=== PATIENT | male | born 1955 | race Caucasian/White ===

== ENCOUNTER 2021-08-28 20:21 | Observation (INO) | payer MEDICARE, SELFPAY ==
[2021-08-28 20:23] VITALS: BP 140/102; PULSE 114; RESP 16; TEMP 36.5; O2SAT 98
[2021-08-28 21:30] LABS: Bacteria 0 SEEN /hpf (None Seen); Mucous, Urine 0 SEEN /hpf (<or=2+); Red Blood Cells-Urine 0 SEEN /hpf (0-5)
[2021-08-28 21:42] LABS: Absolute Lymphocyte Count 0.63 X10^3/uL (0.83-4.51); Absolute Neutrophil Count 10.9 X10^3/uL (2.0-7.7); Basophil# 0.04 X10^3/uL; Basophil% 0.3 % (0-1); Eosinophil# 0.02 X10^3/uL; Eosinophils% 0.2 % (0-5); Hematocrit 51.4 % (40-54); Hemoglobin 16.8 g/dL (13.0-16.5); Lymphocyte # 0.63 X10^3/ul (0.83-4.51); Mean Corp Hgb Conc 32.7 g/dL (32-36); Mean Corpuscular Hgb 29.3 pg (27.0-32.0); Mean Corpuscular Volume 89.7 fL (80-94); Mean Platelet Vol. 9.8 fl (6.2-12.0); Monocyte# 0.92 X10^3/uL; Monocyte% 7.4 % (0-10); NRBC Flagged by Analyzer 0 % (0-5); Neutrophil # 10.85 X10^3/uL (2.7-7.7); Neutrophil % 86.8 % (47-70); Platelet Count 296 K/mm3 (150-450); RBC Distribution Width CV 13.2 % (11.6-14.6); RBC Distribution Width SD 43.2 fl (35.1-43.9); Red Blood Count 5.73 M/mm3 (4.6-6.2); White Blood Count 12.5 K/mm3 (4.4-11.0)
[2021-08-28 21:52] LABS: Color, Urine Yellow (Yellow); Glucose, Dipstick Normal (Normal); Ketone-Dipstick 5 mg/dl (Negative); Leukocyte Esterase-Dipstick 25 /ul (Negative); Nitrite-Dipstick Negative (Negative); Occult Blood-Urine Negative /ul (Negative); Protein-Dipstick 30 mg/dl (Negative); Urine Bilirubin Dipstick Negative (Negative); Urine Clarity Sl. Cloudy (Clear); Urine Urobilinogen 1 mg/dl (Normal)
[2021-08-28 21:57] LABS: Anion Gap 7 (5-15); BUN 15 mg/dL (7-18); BUN/Creat Ratio 11.2 RATIO (10-20); Calcium,Total 9.2 mg/dL (8.5-10.1); Chloride 106 mmol/L (98-107); Creatinine, Serum 1.34 mg/dL (0.70-1.30); EST Glomerular Filtration Rate 56 mL/min (>60); Est Glom Filt Rate - Afr Amer 68 mL/min (>60); Estimated Creatinine Clearance 44.18 ml/min; Glucose 140 mg/dL (74-106); Potassium 3.9 mmol/L (3.5-5.1); Sodium Level 141 mmol/L (136-145)
[2021-08-28 22:04] LABS: Squamous Epithelial Cells - UA 0-5 SEEN /hpf (0-5); White Blood Cells 0-5 SEEN /hpf (0-5)
[2021-08-28 22:23] VITALS: BP 127/90; PULSE 105; RESP 20; O2SAT 95
--- NOTE | 2021-08-28 22:25 | CT_ITS ---
EXAM: CT ABDOMEN AND PELVIS WITH INTRAVENOUS CONTRAST CLINICAL INDICATION: ? SBO TECHNIQUE: Helically acquired images were obtained of the abdomen and pelvis with intravenous contrast. CTDIvol = ( 14.22 ) mGy, DLP = ( 1126.61 ) mGycm This CT exam was performed using one or more of the following dose reduction techniques: automated exposure control, adjustment of the mA and/or kV according to patient size, and/or use of iterative reconstruction technique. This report was created using [employer] report generation technology. CONTRAST: IV 100mL Isovue-370 COMPARISON: None. FINDINGS: LOWER THORAX: Moderate size hiatal hernia. Lung bases are clear. No cardiomegaly. No significant pericardial effusion. ABDOMEN: LIVER: Unremarkable. Homogeneous. No focal mass. GALLBLADDER AND BILE DUCTS: Cholelithiasis without acute cholecystitis. Gallbladder is contracted. No intra- or extrahepatic biliary ductal dilation. PANCREAS: Unremarkable. No focal cystic or solid mass. SPLEEN: Unremarkable. Normal size without focal cystic or solid mass. ADRENALS: Unremarkable. No nodules. KIDNEYS AND URETERS: Few small renal cysts involving the kidneys. No additional workup needed. No other renal abnormalities. Normal renal size and position. No hydronephrosis. STOMACH AND BOWEL: Small bowel obstruction at the mid level with a transition point at the left abdomen on image 60 series 2. No pneumatosis or portal venous gas. No colitis or diverticulitis or bowel obstruction. PELVIS: APPENDIX: No evidence of acute appendicitis. BLADDER: Unremarkable. REPRODUCTIVE: Unremarkable as visualized. No mass. ABDOMEN and PELVIS: INTRAPERITONEAL SPACE: Unremarkable. No ascites or other fluid collection. No free air. BONES/JOINTS: No suspicious lytic or sclerotic lesions of bone. SOFT TISSUES: Unremarkable. No discrete abdominal or pelvic wall hernia. VASCULATURE: Unremarkable. Abdominal aorta is non-dilated. LYMPH NODES: Unremarkable. No enlarged lymph nodes. CT/Abdomen/Pelvis W IV Cont ONLY IMPRESSION: Moderate to high-grade small bowel obstruction at the mid small bowel level with transition point in the left abdomen. Electronically Signed: Sebas Welch MD at 22:55 EDT ,
[2021-08-28 22:42] LABS: AST(SGOT) 15 U/L (15-37); Alanine Aminotransfer ALT/SGPT 16 U/L (16-61); Albumin, Serum 3.7 g/dL (3.2-5.0); Alkaline Phosphatase 139 U/L (45-117); Bilirubin, Direct 0.18 mg/dL (0.00-0.30); Globulin 3.8 g/dL (2.2-4.2); Lipase 78 U/L (73-393); Protein, Total 7.5 g/dL (6.4-8.2)
[2021-08-28 23:00] VITALS: BP 127/90; PULSE 105; RESP 20; TEMP 36.7; O2SAT 95
[2021-08-28] MEDS: 0.9% Normal Saline 1,000 ML 999 ML IV (23:01)
[2021-08-28] MEDS: Morphine 4 MG/ML Syringe IV (23:02)
[2021-08-28] MEDS: Ondansetron 4 MG/2 ML Vial IV (23:02)
[2021-08-28 23:36] VITALS: BP 124/86; PULSE 97; RESP 20; TEMP 36.6; O2SAT 95
--- NOTE | 2021-08-28 23:37 | EDS_ITS ---
HPI History of Present Illness Chief Complaint: Abd Pain Narrative Narrative: Patient is a 66-year-old male with past medical history of intestinal cancer requiring surgical removal. He states that this was 3 years ago and has been doing well and has not had any type of chemo or radiation. He states that starting yesterday evening he felt some generalized abdominal discomfort that progressed throughout the day. He states he has been nauseated without vomiting and been able to pass gas but has not had a bowel movement. He reports because of his worsening symptoms he was concerned for possible infection and therefore comes in for evaluation. PFSH PFSH Medical History Hx of fracture of leg Medical History no medical history Home Medications vitamins A,C,Z-tfqy-kmzkwu 14,320 unit-226 mg-200 unit capsule (PreserVision AREDS) 1 cap PO DAILY eye health 08/28/21 [History Last Taken 08/28/21] Allergy/AdvReac Type Severity Reaction Status Date / Time No Known Allergies Allergy Verified 08/28/21 20:25 Family History (Updated 08/29/21 @ 00:[address] Jovon Simpson MD) Other Alzheimer disease Heart disease Family History no significant family his Surgical History H/O resection of small bowel Surgical History no surgical history Social History Smoking Status: Never smoker ROS ROS ED Constitutional Constitutional ED: Denies chills or fever(s) ENT ENT ED: Denies sore throat Cardiovascular Cardiovascular: Denies chest pain Respiratory/Chest Respiratory/Chest: Denies cough or dyspnea Gastrointestinal Gastrointestinal: Reports abdominal pain, constipation and nausea; Denies diarrhea or vomiting Genitourinary Genitourinary ED: Denies dysuria Musculoskeletal Musculoskeletal: Denies myalgias Integumentary Denies rash Neurologic Neurologic: Denies headache(s) Hematologic/Lymphatic Hematologic/Lymphatic: Denies easy bleeding or easy bruising EXAM Physical Exam Const Vital Signs: 08/28/21 20:23 08/28/21 23:00 08/28/21 22:23 Temperature 97.7 F L 98.1 F Temperature Source Temporal Temporal Pulse Rate 114 H 105 H 105 H Respiratory Rate 16 20 H 20 H Blood Pressure 140/102 H 127/90 H 127/90 H Blood Pressure Mean 114 102 102 Pulse Ox 98 95 95 Oxygen Delivery Method Room Air Room Air Room Air 08/28/21 23:36 08/29/21 00:00 Temperature 97.9 F 97.9 F Temperature Source Temporal Temporal Pulse Rate 97 93 Respiratory Rate 20 H 20 H Blood Pressure 124/86 H 124/86 H Blood Pressure Mean 98 98 Pulse Ox 95 96 Oxygen Delivery Method Room Air Room Air Positive well nourished and well developed General Appearance ED: well developed HEENT Reports dry mucous membranes Mouth ED: Yes dry mucous membranes Mouth: dry mucous membranes Eyes PERRL and EOMs intact bilaterally Neck supple Resp normal respiratory effort and clear to auscultation bilaterally Cardio regular rate and regular rhythm Rate: other Other Details: Radial pulses are +2-4 bilaterally are equal and symmetric GI GI Narrative: Abdomen is soft but slightly distended. Bowel sounds are normal. There is in creased tympany in the left upper quadrant. There is diffuse pain with palpation without voluntary guarding or rigidity. No pulsatile mass or fluid wave Extremity normal to inspection Neuro oriented x3 and CN's II-XII intact bilaterally Sensorium / Orientation: alert Psych mental status grossly normal Skin no rashes or lesions noted MDM MDM MDM Narrative Medical decision making narrative: Patient presented to the ER hypertensive and mildly tachycardic. His exam is concerning for obstruction based on his distention and previous history. Basic blood work was obtained which revealed mild leukocytosis but otherwise no left shift or lactic acidosis. The CT scan did reveal changes consistent with a small bowel obstruction. General surgery was contacted and did evaluate the patient in the ER. They agree that he does not have a surgical abdomen and at this time does not need placed on their service as there is no surgical process necessary. However as he will need bowel rest and hydration and pain control he will be admitted to medicine service for further care. Lab Data Attestation: I reviewed the patient's lab results. Labs: Laboratory Results - last 24 hr 08/28/21 08/28/21 08/28/21 21:20 21:30 21:30 WBC 12.5 H RBC 5.73 Hgb 16.8 H Hct 51.4 MCV 89.7 MCH 29.3 MCHC 32.7 RDW Std Deviation 43.2 RDW Coeff of Bridgette 13.2 Plt Count 296 MPV 9.8 Immature Gran % (Auto) 0.300 Neut % (Auto) 86.8 H Lymph % (Auto) 5.0 L Sebastian % (Auto) 7.4 Eos % (Auto) 0.2 Baso % (Auto) 0.3 Absolute Neuts (auto) 10.9 H Absolute Lymphs (auto) 0.63 L Nucleated RBC % 0 Sodium 141 Potassium 3.9 Chloride 106 Carbon Dioxide 28.0 Anion Gap 7 BUN 15 Creatinine 1.34 H Estim Creat Clear Calc 44.18 Est GFR (MDRD) Af Amer 68 Est GFR (MDRD) Non-Af 56 L BUN/Creatinine Ratio 11.2 Glucose 140 H Lactic Acid Calcium 9.2 Total Bilirubin Direct Bilirubin AST ALT Alkaline Phosphatase Total Protein Albumin Globulin Lipase Urine Color Yellow Urine Clarity Sl. Cloudy Urine pH 6.0 Ur Specific [place] 1.020 Urine Protein 30 H Urine Glucose (UA) Normal Urine Ketones 5 H Urine Occult Blood Negative Urine Nitrite Negative Urine Bilirubin Negative Urine Urobilinogen 1 H Ur Leukocyte Esterase 25 H Urine RBC 0 SEEN Urine WBC 0-5 SEEN Ur Squamous Epith Cells 0-5 SEEN Urine Bacteria 0 SEEN Urine Mucus 0 SEEN 08/28/21 08/28/21 21:30 23:05 WBC RBC Hgb Hct MCV MCH MCHC RDW Std Deviation RDW Coeff of Bridgette Plt Count MPV Immature Gran % (Auto) Neut % (Auto) Lymph % (Auto) Sebastian % (Auto) Eos % (Auto) Baso % (Auto) Absolute Neuts (auto) Absolute Lymphs (auto) Nucleated RBC % Sodium Potassium Chloride Carbon Dioxide Anion Gap BUN Creatinine Estim Creat Clear Calc Est GFR (MDRD) Af Amer Est GFR (MDRD) Non-Af BUN/Creatinine Ratio Glucose Lactic Acid 1.7 Calcium Total Bilirubin 0.70 Direct Bilirubin 0.18 AST 15 ALT 16 Alkaline Phosphatase 139 H Total Protein 7.5 Albumin 3.7 Globulin 3.8 Lipase 78 Urine Color Urine Clarity Urine pH Ur Specific [place] Urine Protein Urine Glucose (UA) Urine Ketones Urine Occult Blood Urine Nitrite Urine Bilirubin Urine Urobilinogen Ur Leukocyte Esterase Urine RBC Urine WBC Ur Squamous Epith Cells Urine Bacteria Urine Mucus Radiography Diagnostic Testing: Clinical Impression(s) from Imaging Studies Abdomen/Pelvis CT 08/28/21 22:25 IMPRESSION: Moderate to high-grade small bowel obstruction at the mid small bowel level with transition point in the left abdomen. Electronically Signed: Sebas Welch MD at 22:55 EDT , Discharge Plan Dx/Rx/DC Orders Clinical Impression: Small bowel obstruction, History of malignant neoplasm of small intestine Disposition Disposition: Acute Care Hospital [facility] Discharge Date/Time: 08/29/21 00:27
[2021-08-28 23:50] LABS: Lactic Acid 1.7 mmol/L (0.4-1.9)
[2021-08-29] VITALS: BP 124/86; PULSE 93; RESP 20; TEMP 36.6; O2SAT 96
--- NOTE | 2021-08-29 00:11 | PCM.HP.STD ---
HPI - General General Date of Admission: 08/29/21 Date of Service: 08/29/21 Chief Complaint: Abdominal pain HPI Narrative DL LYONS, is a 66 M with a significant history of small intestinal tumor status post surgery about 3 years ago who presents to the emergency department with a persistent upper abdominal pain that started about 24 hours prior to presentation. The pain radiated to his lower abdomen. He described the pain as burning and pressure. The pain worsens with lying on his right side and pain improves with standing up. Associated with symptoms is nausea and vomiting. Patient has anorexia and bloated abdomen. Last time patient bowels moved was about 12 hours prior to presentation. On presentation patient was passing gas. [facility] Medical History no medical history no medical history Home Medications vitamins A,C,V-aaii-bqvbzi 14,320 unit-226 mg-200 unit capsule (PreserVision AREDS) 1 cap PO DAILY 08/28/21 [History Last Taken Unknown] Allergy/AdvReac Type Severity Reaction Status Date / Time No Known Allergies Allergy Verified 08/28/21 20:25 Family History (Updated 08/29/21 @ 00:[address] Jovon Simpson MD) Other Alzheimer disease Heart disease Family History no significant family his Surgical History (Updated 08/29/21 @ 00:[address] Jovon Simpson MD) H/O resection of small bowel Surgical History no surgical history Social History Smoking Status: Never smoker ROS ROS Narrative Pertinent positives and pertinent negatives as noted in HPI. All other systems were reviewed and are negative. Vital Signs Vital Signs Vital Signs: 08/28/21 20:23 08/28/21 23:00 08/28/21 22:23 Temperature 97.7 F L 98.1 F Temperature Source Temporal Temporal Pulse Rate 114 H 105 H 105 H Respiratory Rate 16 20 H 20 H Blood Pressure 140/102 H 127/90 H 127/90 H Blood Pressure Mean 114 102 102 Pulse Ox 98 95 95 Oxygen Delivery Method Room Air Room Air Room Air Weight Weight: 79.379 kg Body Mass Index (BMI) 30.0 Physical Exam Narrative Physical exam: General: Well-nourished, well-developed. Head: Normocephalic, atraumatic, no tenderness Eyes: Vision is grossly intact. EOMI ENT, no trauma, moist mucous membranes, no rhinorrhea Neck: Nontender, full range of motion, no spinal tenderness, deformities, step-off CVS: Regular rate and rhythm. S1-S2 present. No murmur, gallop or rub. Respiratory : clear to auscultation bilaterally, chest wall nontender, no wheezing Abdomen: Soft, tender. Distended. Hyperactive bowel sounds. : Deferred Back: Nontender, no CVA tenderness, no midline spinal tenderness, deformities, step-offs Extremities: Nontender full range of motion, no trauma Skin: Normal color, no trauma, abrasions Neuro: Alert, oriented, cranial nerves II through XII grossly intact. Psychiatry: Normal mood. Normal affect. Not depressed. Not anxious. Results Medical Records Data Attestation: I reviewed the patient's medical records Lab / Micro Data Attestation: I reviewed the patient's lab results. Result Diagrams: 08/28/21 21:30 08/28/21 21:30 Labs: Laboratory Results - last 24 hr 08/28/21 21:20: Urine Color Yellow, Urine Clarity Sl. Cloudy, Urine pH 6.0, Ur Specific [place] 1.020, Urine Protein 30 H, Urine Glucose (UA) Normal, Urine Ketones 5 H, Urine Occult Blood Negative, Urine Nitrite Negative, Urine Bilirubin Negative, Urine Urobilinogen 1 H, Ur Leukocyte Esterase 25 H, Urine RBC 0 SEEN, Urine WBC 0-5 SEEN, Ur Squamous Epith Cells 0-5 SEEN, Urine Bacteria 0 SEEN, Urine Mucus 0 SEEN 08/28/21 21:30: WBC 12.5 H, RBC 5.73, Hgb 16.8 H, Hct 51.4, MCV 89.7, MCH 29.3, MCHC 32.7, RDW Std Deviation 43.2, RDW Coeff of Bridgette 13.2, Plt Count 296, MPV 9.8, Immature Gran % (Auto) 0.300, Neut % (Auto) 86.8 H, Lymph % (Auto) 5.0 L, [place] % (Auto) 7.4, Eos % (Auto) 0.2, Baso % (Auto) 0.3, Absolute Neuts (auto) 10.9 H, Absolute Lymphs (auto) 0.63 L, Nucleated RBC % 0 08/28/21 21:30: Sodium 141, Potassium 3.9, Chloride 106, Carbon Dioxide 28.0, Anion Gap 7, BUN 15, Creatinine 1.34 H, Estim Creat Clear Calc 44.18, Est GFR (MDRD) Af Amer 68, Est GFR (MDRD) Non-Af 56 L, BUN/Creatinine Ratio 11.2, Glucose 140 H, Calcium 9.2 08/28/21 21:30: Total Bilirubin 0.70, Direct Bilirubin 0.18, AST 15, ALT 16, Alkaline Phosphatase 139 H, Total Protein 7.5, Albumin 3.7, Globulin 3.8, Lipase 78 08/28/21 23:05: Lactic Acid 1.7 Radiology Impression Abdomen/Pelvis CT 08/28/21 22:25 IMPRESSION: Moderate to high-grade small bowel obstruction at the mid small bowel level with transition point in the left abdomen. Electronically Signed: Sebas Welch MD at 22:55 EDT Reading Location ID and State: [address] [place] [address] Tel , Service support , Assessment & Plan Assessment/Plan (1) Small bowel obstruction: PLAN: Plan Small bowel obstruction Abdomen pelvis CT was visualized and independently interpreted and I agree with radiology interpretation above. Emergency Department doctor reports discussing the case with General Surgeon occupational therapy instructor who will follow. General surgery consult. Supportive treatment with lactated Ringer's; as needed IV morphine and as needed antiemetics. CBC showed white count of 12.5 likely reactive. Trend. Elevated creatinine His creatinine is mild elevated at 1.34. No previous records to compare with. No records from online community resource ([facility]). Trend Trend DVT Prophylaxis SCD ordered Charges/Coding Visit Charges OBSV E&M: 91373 Initial observation care L2
[2021-08-29 00:39] VITALS: BMI 30.8
[2021-08-29 00:41] VITALS: BP 134/97; PULSE 94; RESP 16; TEMP 36.7; O2SAT 95
[2021-08-29] MEDS: Lactated Ringers 1,000 ML 75 ML IV ×2 (00:59→14:04)
[2021-08-29] MEDS: 0.9% Saline Lock 10 ML Syringe IV (00:59)
--- NOTE | 2021-08-29 01:35 | EX.PCM.CON.S ---
Assessment & Plan Assessment/Plan (1) Small bowel obstruction: PLAN: At this point he is distended but he has no rebound guarding or peritoneal signs at this time. I think he probably can be managed conservatively with IV hydration. If he does vomit then he will need an NG tube and his stomach is fairly distended but I would rather give him a chance for this to pass. He is certainly dehydrated and I think with gentle hydration this is more likely going to resolve. HPI Consult Data Date of Consult: 08/29/21 HPI Narrative HPI Narrative: nimesh PETTY a 66 M with a significant history of small intestinal tumor status post surgery about 3 years ago who presents to the emergency department with a persistent upper abdominal pain that started about 24 hours prior to presentation.? The pain radiated to his lower abdomen.? He described the pain as burning and pressure.? The pain worsens with lying on his right side and pain improves with standing up. Associated with symptoms is nausea and vomiting.? Patient has anorexia and? bloated abdomen.? Last time patient bowels moved was about 12 hours prior to presentation.? On presentation patient was passing gas. CT scan showed a moderate to high-grade small bowel obstruction at the mid small bowel level with a transition point in the left abdomen. PFSH Medical History (Updated 08/29/21 @ 00:46 by Dennis Mcdaniels) Hx of fracture of leg Medical History no medical history Home Medications vitamins A,C,I-oxvx-ouletm 14,320 unit-226 mg-200 unit capsule (PreserVision AREDS) 1 cap PO DAILY eye health 08/28/21 [History Last Taken 08/28/21] Allergy/AdvReac Type Severity Reaction Status Date / Time No Known Allergies Allergy Verified 08/28/21 20:25 Family History (Updated 08/29/21 @ 00:[address] Jovon Simpson MD) Other Alzheimer disease Heart disease Family History no significant family his Surgical History H/O resection of small bowel Surgical History no surgical history Social History Smoking Status: Never smoker ROS Constitutional Constitutional: Reports anorexia; Denies chills, fatigue or fever(s) Cardiovascular Cardiovascular: Denies chest pain Respiratory/Chest Respiratory/Chest: Denies cough or dyspnea Gastrointestinal Gastrointestinal: Reports abdominal pain and bloating Physical Exam Const alert, oriented x3 and no apparent distress HEENT normocephalic and head/scalp atraumatic Eyes PERRL and EOMs intact bilaterally Resp clear to auscultation bilaterally GI soft to palpation Inspection: abdominal distention Auscultation: hypoactive bowel sounds Palpation: Negative for tender, guarding or hernia Lab / Micro Data Result Diagrams: 08/28/21 21:30 08/28/21 21:30 Labs: Laboratory Results - last 24 hr 08/28/21 21:20: Urine Color Yellow, Urine Clarity Sl. Cloudy, Urine pH 6.0, Ur Specific [place] 1.020, Urine Protein 30 H, Urine Glucose (UA) Normal, Urine Ketones 5 H, Urine Occult Blood Negative, Urine Nitrite Negative, Urine Bilirubin Negative, Urine Urobilinogen 1 H, Ur Leukocyte Esterase 25 H, Urine RBC 0 SEEN, Urine WBC 0-5 SEEN, Ur Squamous Epith Cells 0-5 SEEN, Urine Bacteria 0 SEEN, Urine Mucus 0 SEEN 08/28/21 21:30: WBC 12.5 H, RBC 5.73, Hgb 16.8 H, Hct 51.4, MCV 89.7, MCH 29.3, MCHC 32.7, RDW Std Deviation 43.2, RDW Coeff of Bridgette 13.2, Plt Count 296, MPV 9.8, Immature Gran % (Auto) 0.300, Neut % (Auto) 86.8 H, Lymph % (Auto) 5.0 L, [place] % (Auto) 7.4, Eos % (Auto) 0.2, Baso % (Auto) 0.3, Absolute Neuts (auto) 10.9 H, Absolute Lymphs (auto) 0.63 L, Nucleated RBC % 0 08/28/21 21:30: Sodium 141, Potassium 3.9, Chloride 106, Carbon Dioxide 28.0, Anion Gap 7, BUN 15, Creatinine 1.34 H, Estim Creat Clear Calc 44.18, Est GFR (MDRD) Af Amer 68, Est GFR (MDRD) Non-Af 56 L, BUN/Creatinine Ratio 11.2, Glucose 140 H, Calcium 9.2 08/28/21 21:30: Total Bilirubin 0.70, Direct Bilirubin 0.18, AST 15, ALT 16, Alkaline Phosphatase 139 H, Total Protein 7.5, Albumin 3.7, Globulin 3.8, Lipase 78 08/28/21 23:05: Lactic Acid 1.7 Radiology Impression Abdomen/Pelvis CT 08/28/21 22:25 IMPRESSION: Moderate to high-grade small bowel obstruction at the mid small bowel level with transition point in the left abdomen. Electronically Signed: Sebas Welch MD at 22:55 EDT ,
[2021-08-29] MEDS: Morphine 2 MG/ML Syringe IV (02:54)
[2021-08-29 06:24] VITALS: BP 114/82; PULSE 87; RESP 16; TEMP 36.7; O2SAT 95
[2021-08-29 06:29] LABS: Absolute Lymphocyte Count 0.84 X10^3/uL (0.83-4.51); Absolute Neutrophil Count 6.5 X10^3/uL (2.0-7.7); Basophil# 0.03 X10^3/uL; Basophil% 0.4 % (0-1); Eosinophil# 0.14 X10^3/uL; Eosinophils% 1.7 % (0-5); Hematocrit 44.4 % (40-54); Hemoglobin 14.4 g/dL (13.0-16.5); Lymphocyte # 0.84 X10^3/ul (0.83-4.51); Lymphocyte % 10.1 % (19-41); Mean Corp Hgb Conc 32.4 g/dL (32-36); Mean Corpuscular Hgb 29.8 pg (27.0-32.0); Mean Corpuscular Volume 91.7 fL (80-94); Mean Platelet Vol. 9.8 fl (6.2-12.0); Monocyte# 0.87 X10^3/uL; Monocyte% 10.4 % (0-10); NRBC Flagged by Analyzer 0 % (0-5); Neutrophil # 6.45 X10^3/uL (2.7-7.7); Neutrophil % 77.2 % (47-70); Platelet Count 233 K/mm3 (150-450); RBC Distribution Width CV 13.3 % (11.6-14.6); RBC Distribution Width SD 45.1 fl (35.1-43.9); Red Blood Count 4.84 M/mm3 (4.6-6.2); White Blood Count 8.4 K/mm3 (4.4-11.0)
[2021-08-29 06:48] LABS: Anion Gap 5 (5-15); BUN 13 mg/dL (7-18); BUN/Creat Ratio 11.7 RATIO (10-20); Calcium,Total 8.3 mg/dL (8.5-10.1); Chloride 109 mmol/L (98-107); Creatinine, Serum 1.11 mg/dL (0.70-1.30); EST Glomerular Filtration Rate 70 mL/min (>60); Est Glom Filt Rate - Afr Amer 85 mL/min (>60); Estimated Creatinine Clearance 53.33 ml/min; Glucose 98 mg/dL (74-106); Potassium 3.6 mmol/L (3.5-5.1); Sodium Level 143 mmol/L (136-145)
--- NOTE | 2021-08-29 09:09 | PCM.PN.SRG ---
Subjective Subjective Positive flatus patient is feeling better Objective Data Objective Data Abdomen is much less distended, soft nontender no rebound or guarding no peritoneal signs Vital Signs: Vital Signs Temp Pulse Resp BP Pulse Ox O2 Del Method 98.1 F 87 16 114/82 H 95 Room Air 08/29/21 06:24 08/29/21 06:24 08/29/21 06:24 08/29/21 06:24 08/29/21 06:24 08/29/21 08:00 Oxygen Delivery Method Room Air Weight: 179 lb 10.828 oz Body Mass Index (BMI) 30.8 Intake & Output: Intake and Output for Last 24 Hours 08/27/21 08/28/21 08/29/21 23:59 23:59 23:59 Intake Total 1000 / 1000 Balance 1000 / 1000 Lab / Micro Data Result Diagrams: 08/29/21 05:35 08/29/21 05:35 Labs: Laboratory Results - last 24 hr 08/28/21 21:20: Urine Color Yellow, Urine Clarity Sl. Cloudy, Urine pH 6.0, Ur Specific [place] 1.020, Urine Protein 30 H, Urine Glucose (UA) Normal, Urine Ketones 5 H, Urine Occult Blood Negative, Urine Nitrite Negative, Urine Bilirubin Negative, Urine Urobilinogen 1 H, Ur Leukocyte Esterase 25 H, Urine RBC 0 SEEN, Urine WBC 0-5 SEEN, Ur Squamous Epith Cells 0-5 SEEN, Urine Bacteria 0 SEEN, Urine Mucus 0 SEEN 08/28/21 21:30: WBC 12.5 H, RBC 5.73, Hgb 16.8 H, Hct 51.4, MCV 89.7, MCH 29.3, MCHC 32.7, RDW Std Deviation 43.2, RDW Coeff of Bridgette 13.2, Plt Count 296, MPV 9.8, Immature Gran % (Auto) 0.300, Neut % (Auto) 86.8 H, Lymph % (Auto) 5.0 L, [place] % (Auto) 7.4, Eos % (Auto) 0.2, Baso % (Auto) 0.3, Absolute Neuts (auto) 10.9 H, Absolute Lymphs (auto) 0.63 L, Nucleated RBC % 0 08/28/21 21:30: Sodium 141, Potassium 3.9, Chloride 106, Carbon Dioxide 28.0, Anion Gap 7, BUN 15, Creatinine 1.34 H, Estim Creat Clear Calc 44.18, Est GFR (MDRD) Af Amer 68, Est GFR (MDRD) Non-Af 56 L, BUN/Creatinine Ratio 11.2, Glucose 140 H, Calcium 9.2 08/28/21 21:30: Total Bilirubin 0.70, Direct Bilirubin 0.18, AST 15, ALT 16, Alkaline Phosphatase 139 H, Total Protein 7.5, Albumin 3.7, Globulin 3.8, Lipase 78 08/28/21 23:05: Lactic Acid 1.7 08/29/21 05:35: WBC 8.4, RBC 4.84, Hgb 14.4, Hct 44.4, MCV 91.7, MCH 29.8, MCHC 32.4, RDW Std Deviation 45.1 H, RDW Coeff of Bridgette 13.3, Plt Count 233, MPV 9.8, Immature Gran % (Auto) 0.200, Neut % (Auto) 77.2 H, Lymph % (Auto) 10.1 L, [place] % (Auto) 10.4 H, Eos % (Auto) 1.7, Baso % (Auto) 0.4, Absolute Neuts (auto) 6.5, Absolute Lymphs (auto) 0.84, Nucleated RBC % 0 08/29/21 05:35: Sodium 143, Potassium 3.6, Chloride 109 H, Carbon Dioxide 29.0, Anion Gap 5, BUN 13, Creatinine 1.11, Estim Creat Clear Calc 53.33, Est GFR (MDRD) Af Amer 85, Est GFR (MDRD) Non-Af 70, BUN/Creatinine Ratio 11.7, Glucose 98, Calcium 8.3 L Radiography Diagnostic Testing: Radiology Impression Abdomen/Pelvis CT 08/28/21 22:25 IMPRESSION: Moderate to high-grade small bowel obstruction at the mid small bowel level with transition point in the left abdomen. Electronically Signed: Sebas Welch MD at 22:55 EDT , Assessment & Plan Assessment/Plan (1) Small bowel obstruction: PLAN: Okay for ice chips this morning and clear liquids this afternoon.
[2021-08-29 10:00] VITALS: BP 125/95; PULSE 94; RESP 16; TEMP 37.1; O2SAT 94
[2021-08-29 14:02] VITALS: BP 106/75; PULSE 86; RESP 18; TEMP 36.5; O2SAT 97
--- NOTE | 2021-08-29 14:45 | CASEMGMT ---
BETTE CM in to discuss CHEN form with patient. RN CM explained CHEN form, patient voiced understanding. Pt signed form and filed in chart. Pt provided with a copy of signed CHEN form. Patient had no further questions or concerns at this time.
[2021-08-29 20:00] VITALS: BP 111/78; PULSE 89; RESP 16; TEMP 37.1; O2SAT 100
[2021-08-30 02:00] VITALS: BP 91/55; PULSE 88; RESP 14; TEMP 37.2; O2SAT 94
[2021-08-30] MEDS: Lactated Ringers 1,000 ML 75 ML IV (02:51)
[2021-08-30 05:00] LABS: Absolute Neutrophil Count 3.6 X10^3/uL (2.0-7.7); Basophil# 0.03 X10^3/uL; Basophil% 0.5 % (0-1); Eosinophil# 0.23 X10^3/uL; Eosinophils% 4.2 % (0-5); Hematocrit 39.2 % (40-54); Hemoglobin 12.9 g/dL (13.0-16.5); Lymphocyte % 18.1 % (19-41); Mean Corp Hgb Conc 32.9 g/dL (32-36); Mean Corpuscular Hgb 30.1 pg (27.0-32.0); Mean Corpuscular Volume 91.4 fL (80-94); Mean Platelet Vol. 9.8 fl (6.2-12.0); Monocyte# 0.61 X10^3/uL; Monocyte% 11.1 % (0-10); NRBC Flagged by Analyzer 0 % (0-5); Neutrophil # 3.63 X10^3/uL (2.7-7.7); Neutrophil % 65.7 % (47-70); Platelet Count 196 K/mm3 (150-450); RBC Distribution Width CV 13.2 % (11.6-14.6); RBC Distribution Width SD 44.1 fl (35.1-43.9); Red Blood Count 4.29 M/mm3 (4.6-6.2); White Blood Count 5.5 K/mm3 (4.4-11.0)
[2021-08-30 05:22] LABS: Anion Gap 5 (5-15); BUN 11 mg/dL (7-18); BUN/Creat Ratio 11.9 RATIO (10-20); Calcium,Total 7.7 mg/dL (8.5-10.1); Chloride 108 mmol/L (98-107); Creatinine, Serum 0.92 mg/dL (0.70-1.30); EST Glomerular Filtration Rate 87 mL/min (>60); Est Glom Filt Rate - Afr Amer 105 mL/min (>60); Estimated Creatinine Clearance 64.35 ml/min; Glucose 89 mg/dL (74-106); Potassium 3.4 mmol/L (3.5-5.1); Sodium Level 139 mmol/L (136-145)
[2021-08-30 07:00] VITALS: BP 107/76; PULSE 77; RESP 14; TEMP 37.3; O2SAT 93
--- NOTE | 2021-08-30 10:48 | DCINST_ITS ---
Discharge Instructions Diet Discharge Diet: Light diet - advance as tolerated Activity Discharge Activity: Return to Normal Activity Dressing / Incision Call your doctor if your incision/area has: Continuous Slow Oozing Call your doctor if you observe: Fever of 101 or Higher, Shortness of breath, Dizziness, Fainting spells, Swelling in the ankles, Chest pain and Increased palpitations (irregular heartbeat) Follow Up Care Test Results: Test results from this visit will be discussed in further detail at your follow- up appointment, if applicable. Discharge Plan Admission Admit Date/Time: 08/29/21 00:07 Attending Provider: Kvng Iqbal Primary Care Provider: Care Physician,No Primary Consulting Providers: Mane Encarnacion ; Jovon Simpson Discharge Orders/Prescriptions Prescriptions: No Action PreserVision AREDS 14,320-226-200 [id number] Capsule 1 cap PO DAILY Referrals / Follow Up: Care Physician,No Primary [Primary Care Provider] - Disposition Disposition (needs filled in before D/C Order can be placed): Home, Self Care
--- NOTE | 2021-08-30 11:04 | PCM.DC.SUM ---
Providers Date of Admission: 08/29/21 Primary Care Physician: No Primary Care Phys Consultations 08/29/21 00:30 Consult: General Surgery Routine Consulting Provider: Mane Encarnacion Reason for Consult: sbo EMERGENT Consult: No MD Notified: Yes Date Notified: 08/29/21 Time Notified: 01:35 Method of Notification: ED Physician Initiated Reason For Visit: SBO Diagnosis Discharge Diagnosis (1) Small bowel obstruction: Status: Acute Code(s): K56.609 - Unspecified intestinal obstruction, unspecified as to partial versus complete obstruction Medications at Discharge Home Medications vitamins A,C,G-yifj-lmcicz 14,320 unit-226 mg-200 unit capsule (PreserVision AREDS) 1 cap PO DAILY eye health 08/28/21 Hospital Course Operations None Procedures None Summary of Care Provided Minutes Spent on Discharge: 35 Hospital Course: Per HPI: DL LYONS, is a 66 M with a significant history of small intestinal tumor status post surgery about 3 years ago who presents to the emergency department with a persistent upper abdominal pain that started about 24 hours prior to presentation.? The pain radiated to his lower abdomen.? He described the pain as burning and pressure.? The pain worsens with lying on his right side and pain improves with standing up. Associated with symptoms is nausea and vomiting.? Patient has anorexia and? bloated abdomen.? Last time patient bowels moved was about 12 hours prior to presentation.? On presentation patient was passing gas. Hospital Course: 1. SBO?66-year-old male presented to the hospital with abdominal pain as well as some nausea and vomiting. He had an intestinal resection about 3 years ago for an intestinal tumor this is his first episode of a small bowel obstruction. General surgery was consulted and assisted in management. He was started on a clear liquid diet yesterday afternoon as he had been passing some gas and this morning had a bowel movement and general surgery evaluated and felt that he would be able to go home today. His renal function also improved from 1.34 on admission down to 2.92 on discharge. I discussed with him the plan for discharge today he expressed understanding of the risk and benefits of going home and would like to go home today. He will need to follow-up with his PCP in 3 to 5 days for outpatient monitoring. Physical Exam Narrative General: Alert, Oriented x3, Cooperative, No apparent distress HEENT: Atraumatic, PERRLA, EOMI, Normocephalic Oral: Moist Mucosa Neck: Supple, No JVD Lungs: Clear to auscultation, Normal air movement, No rhonchi, No wheeze, No rales Cardiovascular: Regular rate, Regular Rhythm, Normal S1, Normal S2, No murmurs Abdomen: Soft, Non Tender, Non-Distended, No Hepato-splenomegaly Extremities: No edema, Capillary Refill Less than 3 Seconds Skin: No rashes, No breakdown Musculoskeletal: No Tenderness to Palpation of Joints or Extremities Neurological: Cranial nerves II-XII grossly intact, Motor Exam 5/5 strength throughout, Sensory exam intact to light touch and pain Psych/Mental Status: Normal Affect, Appropriate Weight / BMI Weight Weight: 179 lb 10.828 oz Body Mass Index (BMI) 30.8 ABG / Lab / Microbiology Data Result Diagrams: 08/30/21 04:15 08/30/21 04:15 Laboratory: Laboratory Results - last 24 hr 08/30/21 04:15: WBC 5.5, RBC 4.29 L, Hgb 12.9 L, Hct 39.2 L, MCV 91.4, MCH 30.1, MCHC 32.9, RDW Std Deviation 44.1 H, RDW Coeff of Bridgette 13.2, Plt Count 196, MPV 9.8, Immature Gran % (Auto) 0.400, Neut % (Auto) 65.7, Lymph % (Auto) 18.1 L, [place] % (Auto) 11.1 H, Eos % (Auto) 4.2, Baso % (Auto) 0.5, Absolute Neuts (auto) 3.6, Absolute Lymphs (auto) 1.00, Nucleated RBC % 0 08/30/21 04:15: Sodium 139, Potassium 3.4 L, Chloride 108 H, Carbon Dioxide 26.0, Anion Gap 5, BUN 11, Creatinine 0.92, Estim Creat Clear Calc 64.35, Est GFR (MDRD) Af Amer 105, Est GFR (MDRD) Non-Af 87, BUN/Creatinine Ratio 11.9, Glucose 89, Calcium 7.7 L D/C Instructions Discharge Diet: Light diet - advance as tolerated Call your doctor if your incision/area has: Continuous Slow Oozing Call your doctor if you observe: Fever of 101 or Higher, Shortness of breath, Dizziness, Fainting spells, Swelling in the ankles, Chest pain and Increased palpitations (irregular heartbeat) Meaningful Use Info Meaningful Use Diagnoses (Choose all that apply): None applicable Discharge Plan Admission Admit Date/Time: 08/29/21 00:07 Attending Provider: Kvng Iqbal Primary Care Provider: Care Physician,No Primary Consulting Providers: Mane Encarnacion ; Jovon Simpson Discharge Orders/Prescriptions Prescriptions: No Action PreserVision AREDS [id number] [id number]-ex-[id number] Capsule 1 cap PO DAILY Referrals / Follow Up: Care Physician,No Primary [Primary Care Provider] - Disposition Disposition (needs filled in before D/C Order can be placed): Home, Self Care Charges/Coding Visit Charges OBSV E&M: 73319 Observation care discharge
--- NOTE | 2021-08-30 11:09 | PCM.PN.SRG ---
Subjective Subjective Positive bowel movements patient feels significantly improved. Objective Data Objective Data Abdomen is soft. Vital Signs: Vital Signs Temp Pulse Resp BP Pulse Ox O2 Del Method 99.1 F 77 14 107/76 93 Room Air 08/30/21 07:00 08/30/21 07:00 08/30/21 07:00 08/30/21 07:00 08/30/21 07:00 08/30/21 07:00 Oxygen Delivery Method Room Air Weight: 179 lb 10.828 oz Body Mass Index (BMI) 30.8 Intake & Output: Intake and Output for Last 24 Hours 08/28/21 08/29/21 08/30/21 23:59 23:59 23:59 Intake Total 2261.25 / 2261.25 958.75 / 958.75 Balance 2261.25 / 2261.25 958.75 / 958.75 Lab / Micro Data Result Diagrams: 08/30/21 04:15 08/30/21 04:15 Labs: Laboratory Results - last 24 hr 08/30/21 04:15: WBC 5.5, RBC 4.29 L, Hgb 12.9 L, Hct 39.2 L, MCV 91.4, MCH 30.1, MCHC 32.9, RDW Std Deviation 44.1 H, RDW Coeff of Bridgette 13.2, Plt Count 196, MPV 9.8, Immature Gran % (Auto) 0.400, Neut % (Auto) 65.7, Lymph % (Auto) 18.1 L, [place] % (Auto) 11.1 H, Eos % (Auto) 4.2, Baso % (Auto) 0.5, Absolute Neuts (auto) 3.6, Absolute Lymphs (auto) 1.00, Nucleated RBC % 0 08/30/21 04:15: Sodium 139, Potassium 3.4 L, Chloride 108 H, Carbon Dioxide 26.0, Anion Gap 5, BUN 11, Creatinine 0.92, Estim Creat Clear Calc 64.35, Est GFR (MDRD) Af Amer 105, Est GFR (MDRD) Non-Af 87, BUN/Creatinine Ratio 11.9, Glucose 89, Calcium 7.7 L Assessment & Plan Assessment/Plan (1) Small bowel obstruction: PLAN: Okay to discharge from my standpoint.
[2021-08-30 11:16] VITALS: BP 107/76; PULSE 77; RESP 16; TEMP 37.3; O2SAT 93
== END 2021-08-30 11:12 | disposition home or self-care (01) ==
LOC: ED 23:37 → MS3 08-29 00:44
PROVIDERS: Admitting Provider Hospitalist; Emergency Provider Emergency Medicine; Visit Provider Family Medicine
DX: K56.609 Unspecified intestinal obstruction, unspecified as to partial versus complete obstruction (principal); Z85.038 Personal history of other malignant neoplasm of large intestine; R79.89 Other specified abnormal findings of blood chemistry
CPT/HCPCS: 36415; 74177; 80048; 80076; 81001; 83605; 83690; 85025; 96361; 96374; 96375; 96376; 99218; 99283; J7030; J7120; Q9967; A4216; G0378; J2405